=== PATIENT | female | born 1985 | race Caucasian/White ===

== ENCOUNTER 2017-05-11 17:27 | Emergency (ER) | payer BC ==
[2017-05-11 17:44] VITALS: BP 120/55
--- NOTE | 2017-05-11 18:48 | UC ---
Ear Complaint HPI - HPI Summary HPI Summary: URI Sx for 2 weeks, now with earache. - History of Current Complaint Chief Complaint: UCRespiratory Stated Complaint: HEAD CONGESTION Time Seen by Provider: 05/11/17 18:40 Hx Obtained From: Patient Hx Last Menstrual Period: 04/28/17 ?: No Onset/Duration: Sudden Onset, Lasting Weeks - 2, Worse Since - earache over the last week. Severity Initially: Mild Severity Currently: Moderate Aggravating Factors: Nothing Alleviating Factors: Nothing Associated Signs/Symptoms: Positive: Hearing Loss Related History: Seasonal Allergies - Allergies/Home Medications Allergies/Adverse Reactions: Allergies Allergy/AdvReac Type Severity Reaction Status Date / Time No Known Allergies Allergy Verified 05/11/17 17:43 Home Medications: Home Medications NK [No Home Medications Reported] 05/11/17 [History Confirmed 05/11/17] PMH/Surg Hx/FS Hx/Imm Hx Previously Healthy: Yes - Surgical History Surgical History: None - Family History Known Family History: Positive: Diabetes Negative: Cardiac Disease, Hypertension - Social History Occupation: Employed Full-time Lives: With Family Alcohol Use: Rare Substance Use Type: None Smoking Status (MU): Never Smoked Tobacco - Immunization History Most Recent Influenza Vaccination: 03/2017 Most Recent Tetanus Shot: up to date through PCP Review of Systems ENT: Ear Ache, Nasal Discharge Is Patient Immunocompromised?: No All Other Systems Reviewed And Are Negative: Yes Physical Exam Triage Information Reviewed: Yes Appearance: Well-Appearing, No Pain Distress, Well-Nourished Vital Signs: Initial Vital Signs Temp 98.2 F 05/11/17 17:40 Pulse 81 05/11/17 17:40 Resp 16 05/11/17 17:40 BP 120/55 05/11/17 17:40 Pulse Ox 100 05/11/17 17:40 Vital Signs Reviewed: Yes Eyes: Positive: Conjunctiva Clear ENT: Positive: Pharynx normal, TMs normal - but retracted Neck exam: Normal Respiratory Exam: Normal Respiratory: Positive: Wheezing - some wheeze with coughing Cardiovascular Exam: Normal Musculoskeletal Exam: Normal Neurological Exam: Normal Psychological Exam: Normal Skin Exam: Normal Ear Complaint Course/Dx - Differential Dx/Diagnosis Differential Diagnosis/HQI/PQRI: Cerumen Impaction, Otitis Externa, Otitis Media Provider Diagnoses: Allergic Rhinitis. Bilateral eustachian tube dysfunction Discharge - Discharge Plan Condition: Stable Disposition: HOME Patient Education Materials: Allergic Rhinitis (ED) Additional Instructions: NEILMED SINUS RINSE: CHECK OUT AT [employer] Saline nasal wash helps with mucous, allergies and congestion. It can be used up to twice a day or only as needed. Use lukewarm tap water. It does not have to be sterilized or distilled water. Do 1/3 on each side and snort out of both nostrils. Repeat the process with 1/6 of the bottle on each side with snorting in between to finish the solution in the bottle
== END 2017-05-11 19:19 | disposition home or self-care (01) ==
LOC: UCCORT 17:27
DX: H69.83 Other specified disorders of Eustachian tube, bilateral (principal); J30.9 Allergic rhinitis, unspecified
CPT/HCPCS: 99211; G0463

== ENCOUNTER 2018-06-02 14:26 | Emergency (ER) | payer BC ==
--- NOTE | 2018-06-02 15:00 | UC ---
Throat Pain/Nasal [place] HPI - HPI Summary HPI Summary: 33 y/o female presents to the urgent care c/o sinus congestion and pain pressure w/ pain for the past 2 weeks. Pt reports she is 13 weeks and has Hx of seasonal allergies. Symptoms started w/ a common cold and clear nasal discharge. now she has a green nasal discharge w/ PND and a dry cough for the past 2 days. Pain is 5/10. she took a Tylenol PO last night to alleviate symptoms, since she hasn't been able to sleep well. pt denies fever, SOB, wheezing, chest pain, dizziness, Abdominal pain, N/V/D. - History of Current Complaint Stated Complaint: SINUSES Time Seen by Provider: 06/02/18 14:58 Hx Obtained From: Patient Hx Last Menstrual Period: 03/06/2018 ?: Yes Onset/Duration: Gradual Onset, Lasting Weeks - 2 weeks, Still Present, Worse Since - 2 days Severity: Moderate Pain Intensity: 5 Pain Scale Used: 0-10 Numeric Cough: Nonproductive Associated Signs & Symptoms: Positive: Nasal Discharge - green. Negative: Dysphagia, Fever, Rash Related History: Seasonal Allergies - Epiglottits Risk Factors Epiglottis Risk Factors: Negative - Allergies/Home Medications Allergies/Adverse Reactions: Allergies Allergy/AdvReac Type Severity Reaction Status Date / Time No Known Allergies Allergy Verified 06/02/18 15:00 Home Medications: Home Medications LevoCETirizine TAB (NF) [Xyzal TAB (NF)] 5 mg PO DAILY 06/02/18 [History Confirmed 06/02/18] 123/Iron/Folic/Omeg3s [One-A-Day 1 Dha Sfgl] 1 cap PO DAILY [History Confirmed 06/02/18] PMH/Surg Hx/FS Hx/Imm Hx Previously Healthy: Yes - Pt denies PMHX - Surgical History Surgical History: None - Family History Known Family History: Positive: Diabetes Negative: Cardiac Disease, Hypertension - Social History Occupation: Employed Full-time Lives: With Family Alcohol Use: Rare Substance Use Type: None Smoking Status (MU): Never Smoked Tobacco - Immunization History Most Recent Influenza Vaccination: 03/2017 Most Recent Tetanus Shot: up to date through PCP Review of Systems Constitutional: Negative Skin: Negative Eyes: Negative ENT: Nasal Discharge - green, Sinus Congestion, Sinus Pain/Tenderness Respiratory: Cough - dry Cardiovascular: Negative Gastrointestinal: Negative Genitourinary: Negative Motor: Negative Neurovascular: Negative Musculoskeletal: Negative Neurological: Headache Psychological: Negative Is Patient Immunocompromised?: No All Other Systems Reviewed And Are Negative: Yes Physical Exam - Summary Physical Exam Summary: Vitals: reviewed General: Well developed, well-nourished female patient with NAD. Head and face: Normocephalic and atraumatic, Positive tenderness over the frontal and maxillary sinuses.. Eyes: PERRLA, EOMI x 2. Normal conjunctiva. No eye discharge. ENT: Ears and TM with normal limits. Nose: edematous and erythematous nasal mucosa with with yellowish discharge and erythematous mucosa. Pharynx with erythema, no exudate. +green PND Neck: Supple, no JVD, no carotid bruits and no lymphadenopathy. Lungs: clear, no rales, no rhonchi, no wheezes. CVS: RRR, S1 and S2 present no murmurs or gallops appreciated. Abdomen: soft nontender with positive bowel sounds. Extremities: no edema noted. Neuro: WNL. Skin: warm and dry Triage Information Reviewed: Yes Throat Pain/Nasal Course/Dx - Course Course Of Treatment: 33 y/o female presents to the urgent care c/o sinus congestion and pain pressure w/ pain for the past 2 weeks. Pt reports she is 13 weeks and has Hx of seasonal allergies. Symptoms started w/ a common cold and clear nasal discharge. now she has a green nasal discharge w/ PND and a dry cough for the past 2 days. Pain is 5/10. she took a Tylenol PO last night to alleviate symptoms, since she hasn't been able to sleep well. pt denies fever, SOB, wheezing, chest pain, dizziness, Abdominal pain, N/V/D. Hx obtained. Pt w/ Acute bacterial sinusitis on examination. Pt with 2 weeks of symptoms getting worse. Pt Rx Amoxicillin PO and advised to use saline drops to clear sinuses. Discharge instructions explained to Pt. Advised to Return to the clinic or PCP if symptoms do not improve.Pt understood and agreed with plan of care. - Differential Dx/Diagnosis Differential Diagnosis/HQI/PQRI: Laryngitis, Pharyngitis, Sinusitis, URI, Other - bronchitis Provider Diagnoses: 1- Acute bacterial sinusitis Discharge - Sign-Out/Discharge Documenting (check all that apply): Patient Departure - D/c home All imaging exams completed and their final reports reviewed: No Studies - Discharge Plan Condition: Stable Disposition: HOME Prescriptions: Amoxicillin PO (*) [Amoxicillin 875 MG (*)] 875 mg PO BID #20 tab Patient Education Materials: Sinusitis (ED) Referrals: Sally Vo MD [Primary Care Provider] - 3 Days Additional Instructions: 1- Please increase fluid intake and rest. take full course of antibiotic to avoid resistance 2-Use saline drops and apply 2 drops on each nostril BID to clear sinuses 3-continue taking Xyzal PO to alleviates sinus congestion 4-Return to the clinic or PCPin 3 days if symptoms do not improve for further management and treatment - Billing Disposition and Condition Condition: STABLE Disposition: Home - Attestation Statements Provider Attestation: Per institutional requirements, I have reviewed the chart, however, I was not consulted specifically or made aware of this patient by the midlevel provider. I did not personally evaluate, interact with , or disposition this patient.
[2018-06-02 15:07] VITALS: BP 121/65
== END 2018-06-02 15:35 | disposition home or self-care (01) ==
LOC: UCCORT 14:26
DX: O98.811 Other maternal infectious and parasitic diseases complicating pregnancy, first trimester (principal); J01.80 Other acute sinusitis; B96.89 Other specified bacterial agents as the cause of diseases classified elsewhere; J30.2 Other seasonal allergic rhinitis; Z3A.13 13 weeks gestation of pregnancy
CPT/HCPCS: 99212; G0463

== ENCOUNTER 2018-12-17 05:14 | Inpatient (IN) | payer BC ==
[2018-12-17] MEDS ORDERED: Lactated Ringers 1000 ML Bag* 1,000 ML IV ONE (05:49)
[2018-12-17] MEDS ORDERED: Buffered Lidocaine 1% SYRIN* 1 ML/SYRINGE INTRADERM ONE (05:49)
[2018-12-17] MEDS ORDERED: Lactated Ringers 1000 ML Bag* 1,000 ML IV SCH ×2 (06:00→16:00)
--- NOTE | 2018-12-17 06:04 | HP ---
General Information - Reason for Visit Patient scheduled for IOL today. Experience gush of clear, pink-tinged fluid around 0100. Now has contractions approx q 10-12 minutes - General Information Maternal Age: 33 Grav: 3 Para: 2 SAB: 0 IEA: 0 Estimated Due Date: 12/11/18 Determined By: LMP Maternal Blood Type and Rh: AB Positive - Results this Serology/RPR Result: Non-Reactive Rubella Result: Immune HBsAg Result: Negative HIV Result: Negative GBS Culture Result: Negative Past Medical History Delivery History: Hx Uncomplicated Vaginal Delivery Delivery History Comment: 2X SVB: 09/2012, 12/2014 Pertinent Past Medical History: See Records Past Medical History Comment: Allergies goiter Back pain, slipped disk 2013 GDM first Pertinent Past Surgical History: See Records Past Surgical History Comment: [place] teeth 2010 Adenoidectomy 1987 Pertinent Family History: See Records Family History Comment: Diabetes Asthma Allergies Esophageal cancer Stroke [place] Kidney - Antepartal Records Antepartal Records: Reviewed, Complicated by: - GDM, diet controlled Review of Systems Constitutional: Uncomfortable CV Complaint: No Respiratory: Shortness of Breath: No Gastrointestinal: No Nausea/Vomiting, Normal Bowel Movement Genitourinary: Leaking Fluid, No Dysuria, No Bleeding Musculoskeletal: No Epigastric Pain, Contractions Neurological: No Headache, No Visual Changes Movement: Normal Exam Allergies/Adverse Reactions: Allergies No Known Allergies Allergy (Verified 12/17/18 05:41) BP 143/89 repeat 132/73 T 97.4 RR 18 HR 100 O2 100% Lab Values - Entire Visit: Laboratory Tests 12/17/18 05:30 Vag Amniotic Fld Detect Positive - Measurements Height: 5 ft 5 in Weight: 230 lb Weight in lbs: [phone] Body Mass Index (BMI): 38.2 Pre- Weight: 175 lb Weight Gained This : 54.999 lbs and 0.005 ozs - Exam Breast: Breast Exam Deferred CVA: No CVA Tenderness Extremities: No Edema Heart: Normal Rhythm/Heart Sounds HEENT: No Significant Findings Lungs: Clear Bilaterally Rectal: Rectal Exam Deferred Reflexes: DTR 2+, - - no clonus Thyroid: - - WNL @ entry to [facility] - Abdominal Exam Abdomen Exam: Non-Tender, Fundal Height Consistent with Dates - Ultrasound/Biophysical Profile Ultrasound Status: Not Done Targeted Exam Findings Estimated Weight: 8.5-9lb Cervical Exam: 3cm Effacement: 80% Station: 0 Presenting Part: Vertex Membrane Status: SROM Amniotic Fluid Evaluation: Positive ROM Plus Bleeding/Discharge: None EFM Findings - External Monitor Findings Baseline Heart Rate: 145 External Monitor Findings: Accelerations Present, No Pattern of Variable or Late Decelerations, Variability Moderate Contractions: Regular, Moderate, 45-90 Seconds Contraction Frequency: approx Q 8-9 min Assessment/Plan - Assessment IUP @ 40+6 weeks gestation in early labor. Spontaneous rupture of membranes. GDM , diet controlled. No evidence metabolic acidemia - Obstetrical Risk Factors Obstetrical Risk Factors: Gestational Diabetes - Plan Plan: Admit - Anticipate Vaginal Delivery Plan Comment: Admit to L&D. Plan to monitor for now, can consider discussion of labor augmentation if needed. May want pain medications but would like to try tub for now. Anticipate SVB. - Date/Time of Admission Date of Admission: 12/17/18 Time of Admission: 05:26
[2018-12-17] MEDS: Calcium Carbonate CHEW TAB* 500 MG (TUMS) PO PRN ×2 (07:11→12:53)
--- NOTE | 2018-12-17 08:44 | PN ---
Progress Note - Progress Note Date of Service: 12/17/18 Note: S: Report received Pavan Magana CNM. Pt resting comfortably in bed. Contractions every 10 mins or so. Becoming more intense. Continues to leak clear fluid. Desires waiting for active labor vs IOL O: BP: 143/89, retake 132/73 VE deferred, last exam /0, vtx A: , IUP@40+6 SROM, clear fluid BP WNL GDM A1 No evidence of metabolic acidemia Irregular contractions and mother at bedside and supportive. P: Continue intermittent monitoring BP and temps q2 hours Pt to await active labor as long as afebrile, FHR reassuring Anticipate progression to active labor
--- NOTE | 2018-12-17 14:13 | PN ---
Progress Note - Progress Note Date of Service: 12/17/18 Note: S: Pt resting comfortably in bed. Just took bath. Contractions every 7 mins or so. Becoming more intense. No fluid noted. +FM. Desires waiting for active labor vs IOL O: BP: 134/79 temp: 98.1 VE deferred, last exam /0, vtx FHR via IM: 145 A: , IUP@40+6, GDM A1 SROM, clear fluid BP WNL No evidence of metabolic acidemia More consistent contractions at bedside and supportive. P: Encouraged pt to ambulate, use yoga ball Continue intermittent monitoring BP and temps q2 hours Pt to await active labor as long as afebrile, FHR reassuring Anticipate progression to active labor
--- NOTE | 2018-12-17 14:37 | PN ---
Progress Note - Progress Note Date of Service: 12/17/18 Note: S: Pt coping well with contractions. Contractions every 2-3 minutes. Becoming more intense. Continues to leak clear fluid. Requesting VE. O: BP: 134/79 temp: 97.4 VE: 4/100/0, vtx FHR: 135, moderate variability, +accels, no decels A: , IUP@40+6, GDM A1 SROM, clear fluid BP WNL, afebrile No evidence of metabolic acidemia Regular contractions, cervix changing and mother at bedside and supportive. P: Pt will use yoga ball Continue intermittent monitoring BP and temps q2 hours Early labor Anticipate progression to
[2018-12-17] MEDS ORDERED: Witch Hazel PAD* JAR TOPICAL PRN (15:50)
[2018-12-17] MEDS ORDERED: Dibucaine 1% 28.35 GM TUBE PR PRN (15:50)
[2018-12-17] MEDS ORDERED: Acetaminophen TAB* 325 MG PO PRN (15:50)
[2018-12-17] MEDS ORDERED: Glycerin ADULT SUPP PR PRN (15:50)
[2018-12-17] MEDS ORDERED: OXYTOCIN* 10 UNITS/ML 1 ML VIAL IM ONE (15:50)
--- NOTE | 2018-12-17 15:53 | PROCNOTE ---
[facility] OB: Delivery Note - Delivery A Date of : 12/17/18 Time of : 15:21 [place] Sex: Male Score 1 Minute: 9 Score 5 Minutes: 9 Gestational Age in Weeks and Days at Delivery: 40 Weeks and 6 Days Delivery Method: Spontaneous Vaginal Labor: Spontaneous Did Patient attempt ?: N/A, No Previous Amniotic Fluid: Clear Estimated Blood Loss: 150 Anesthesia/Analgesia: None - Perineum Perineal Injury: Perineal Laceration, 1st Degree Perineal Repair: By Delivering Practioner - Additional Delivery Notes Additional Delivery Notes: 33 yo, , IUP at 40+6 weeks admitted for SROM clear fluid. Active labor started at 1200 and she progressed to complete and complete. Pt began pushing at 1509, crowned to delivery of liveborn male infant at 1521, OA to MARLO, shoulders followed easily. to mother's chest, dried and stimulated with spontaneous cry. 's 9'9. Cord clamped and cut by FOB. Spontaneous ramiro delivery of intact placenta at 1529. Fundus firm. Bleeding minimal. EBL 150mL. After careful inspection a first degree perineal laceration was identified and repaired in the usual fashion. Normal anatomy restored, hemostasis achieved. Infant breast feeding. Mother and in stable condition at time of note.
[2018-12-17] MEDS: Ibuprofen TAB* 600 MG PO PRN ×2 (17:15→22:20)
[2018-12-17] MEDS ORDERED: Simethicone TAB* 80 MG TAB.CHEW PO SCH (17:30)
[2018-12-17] MEDS: Docusate CAP* 100 MG PO SCH (22:20)
[2018-12-18 08:12] LABS: ABS Eosinophils 0.1 10^3/ul (0-0.6); ABS Lymphocytes 2.3 10^3/ul (1.0-4.8); ABS Monocytes 1.1 10^3/ul (0-0.8); ABS Neutrophils 12.4 10^3/ul (1.5-7.7); Eosinophil % 0.4 %; Hematocrit 38 % (35-47); Hemoglobin 12.4 g/dL (12.0-16.0); Lymphocyte % 14.6 %; Mean Corpuscular HGB Conc 33 g/dL (31-36); Mean Corpuscular Hemoglobin 27 pg (27-31); Mean Corpuscular Volume 84 fL (80-97); Mean Platelet Volume 10.7 fL (7.4-10.4); Platelet Count 167 10^3/uL (150-450); Red Blood Count 4.52 10^6 /uL (3.70-4.87); Red Cell Distribution Width 16 % (10.5-15); White Blood Count 15.9 10^3/uL (3.5-10.8)
[2018-12-18] MEDS: Docusate CAP* 100 MG PO SCH ×3 (08:29→21:15)
[2018-12-18] MEDS: Ibuprofen TAB* 600 MG PO PRN (08:30)
[2018-12-18] MEDS ORDERED: Ferrous Gluconate TAB* 324 MG TAB PO SCH (09:00)
[2018-12-19] MEDS: Docusate CAP* 100 MG PO SCH ×2 (07:57→14:43)
[2018-12-19] MEDS: Ibuprofen TAB* 600 MG PO PRN ×2 (07:57→14:43)
[2018-12-19 08:14] VITALS: BP 130/68
--- NOTE | 2018-12-19 09:28 | PN ---
Progress Note - Progress Note Date of Service: 12/19/18 Note: Pt feeling very well. Her BPs have been intermittently elevated, which was consistent with the last few visits of her . She denies headache, denies abdominal pain, denies vision changes. Will draw PEC labs to further evaluate, but likely gestational HTN vs white coat syndrome. Pt will likely be discharged later today, possibly to courtesy status, as infant may be staying another day for phototherapy.
[2018-12-19 10:52] LABS: ABS Basophils 0.1 10^3/ul (0-0.2); ABS Eosinophils 0.2 10^3/ul (0-0.6); ABS Lymphocytes 2.1 10^3/ul (1.0-4.8); ABS Monocytes 0.7 10^3/ul (0-0.8); ABS Neutrophils 8.9 10^3/ul (1.5-7.7); Eosinophil % 1.3 %; Hematocrit 36 % (35-47); Lymphocyte % 17.8 %; Mean Corpuscular HGB Conc 33 g/dL (31-36); Mean Corpuscular Hemoglobin 28 pg (27-31); Mean Corpuscular Volume 84 fL (80-97); Mean Platelet Volume 9.8 fL (7.4-10.4); Nucleated Red Blood Cells % 0.1; Platelet Count 180 10^3/uL (150-450); Red Blood Count 4.34 10^6 /uL (3.70-4.87); Red Cell Distribution Width 16 % (10.5-15)
[2018-12-19 11:11] LABS: Albumin 3.2 g/dL (3.2-5.2); Albumin/Globulin Ratio 1.1 (1-3); BUN/Creatinine Ratio 15.1 (8-20); Calcium 8.8 mg/dL (8.6-10.3); EGFR African American 159.8 (>60); EGFR Non-African American 132.1 (>60); Globulin 2.9 g/dL (2-4); Total Bilirubin 0.5 mg/dL (0.2-1.0); Total Protein 6.1 g/dL (6.4-8.9); Uric Acid 4.5 mg/dL (2.3-6.6)
== END 2018-12-19 17:40 | disposition home or self-care (01) | DRG 560 ==
LOC: MCHOBOUT 05:14 → MCHOB 05:26
PROVIDERS: ADMIT Midwife; ATTEND Advanced Practice Midwife
PROC: 10E0XZZ Delivery of Products of Conception, External Approach (ICD-10-PCS; principal; 2018-12-17)
PROC: 3E033VJ Introduction of Other Hormone into Peripheral Vein, Percutaneous Approach (ICD-10-PCS; 2018-12-17)
PROC: 4A1HXCZ Monitoring of Products of Conception, Cardiac Rate, External Approach (ICD-10-PCS; 2018-12-17)
PROC: 0HQ9XZZ Repair Perineum Skin, External Approach (ICD-10-PCS; 2018-12-17)
DX: O24.420 Gestational diabetes mellitus in childbirth, diet controlled (principal); O99.42 Diseases of the circulatory system complicating childbirth; Z37.0 Single live birth; O48.0 Post-term pregnancy; Z3A.40 40 weeks gestation of pregnancy; O70.0 First degree perineal laceration during delivery; R03.0 Elevated blood-pressure reading, without diagnosis of hypertension
CPT/HCPCS: 36415; 80053; 84112; 84550; 85025; A9270-GY